=== PATIENT | male | born 2000 ===

== ENCOUNTER 2019-05-29 00:56 | Emergency (ER) | payer SELFPAY ==
[2019-05-29 01:09] VITALS: BP 139/75
== END 2019-05-29 04:30 | disposition left against medical advice (07) ==
LOC: ED 00:56
DX: S69.91XA Unspecified injury of right wrist, hand and finger(s), initial encounter (principal); Z53.21 Procedure and treatment not carried out due to patient leaving prior to being seen by health care provider; X58.XXXA Exposure to other specified factors, initial encounter; Y93.89 Activity, other specified; Y92.89 Other specified places as the place of occurrence of the external cause; Y99.8 Other external cause status